=== PATIENT | female | born 1940 | race Caucasian/White ===

== ENCOUNTER 2017-01-04 09:16 | Inpatient (IN) | payer OTHER ==
[~2017-01-04] VITALS: Ht 162.6 cm; Wt 79.8 kg
--- NOTE | ~2017-01-04 | EKG ---
[place] [address] [facility] [place] [address] ELECTROCARDIOGRAM REPORT Name: TOSIN BARRETT Room #: 438-P ADM IN M.R.#: [id number] Admission: 01/04/17 Attend Phys: Gasper Bustillo MD Discharge: Date of : 38 Report #: [id number] THIS REPORT FOR: //name// [facility] ED Test Date: 2017-01-04 Test Time: 09:58:40 Pat Name: TOSIN BARRETT Department: Room: 438 Gender: F Ring Spinner: MICHAELA : 1940 Requested By: Giovany Sebastian Order Number: [id number] MD: Patel Kaur Measurements Intervals [place] Rate: 65 P: 21 DE: 183 QRS: -6 QRSD: 115 T: 7 QT: 450 QTc: 468 Interpretive Statements Sinus rhythm Frequent ventricular ectopy Nonspecific T abnormalities Compared to ECG 09/21/2014 11:17:03 Ventricular premature complex(es) now present Electronically Signed On 01-05-2017 8:20:20 CDT by Patel Kaur [email or web address] <ELECTRONICALLY SIGNED> By: Patel Kaur MD, [facility] 01/05/17 08 7 7 Patel Kaur MD, [facility] /EPI
[~2017-01-04 09:16] MED LIST: AMARYL4 MG PO; ANTIVERT25 MG PO; BYSTOLIC2.5 MG PO; COLACE100 MG PO; JANUVIA100 MG PO; LIPITOR20 MG PO; PERCOCET 5-3251 EACH PO; ULTRAM 50MG TAB50 MG PO; ZOFRAN ODT4 MG PO
[2017-01-04 09:19] VITALS: BP 137/114
[2017-01-04] MEDS ORDERED: TESSALON PERLE100 MG PO (09:42)
[2017-01-04] MEDS ORDERED: ROBAXIN 750 MG750 M1 PO (09:42)
[2017-01-04 10:02] LABS: HEMATOCRIT 47.4 % (37.0-47.0); HEMOGLOBIN 15.7 gm/dL (12.0-15.0); MCH 31.3 pg (26.0-34.0); MCHC 33.2 g/dL (28.0-37.0); MCV 94.1 fL (80.0-100.0); PLATELET COUNT 188 thou/uL (150-400); RBC 5.03 mil/uL (4.20-5.00); RDW 14.5 % (10.5-14.5); WBC 20.3 thou/uL (4.0-11.0)
[2017-01-04 10:13] LABS: ANION GAP 8 mmol/L (7-16); BUN 15 mg/dL (7-18); CALCIUM 9.7 mg/dL (8.5-10.1); CHLORIDE 102 mmol/L (98-107); CO2 28 mmol/L (21-32); CREATININE 0.9 mg/dL (0.6-1.0); GLUCOSE 211 mg/dL (74-106); POTASSIUM 3.9 mmol/L (3.5-5.1); SODIUM 138 mmol/L (136-145)
[2017-01-04 10:16] LABS: MANUAL DIFF YES
[2017-01-04 10:21] LABS: TROPONIN-I < 0.04 ng/mL (<0.04-0.07)
[2017-01-04 10:27] LABS: ABG SAMPLE TYPE ARTERIAL; BE(vivo) -1.3 mmol/L (-2 to +3); HCO3 23.3 mmol/L (22.0-26.0); LACTATE 1.65 mmol/L (0.5-2.0); PCO2 38.9 mmHg (35.0-45.0); PO2 65.7 mmHg (80.0-100.0); pH 7.395 (7.360-7.450); tCO2 24.5 mmol/L (24.0-30.0)
[2017-01-04 10:28] LABS: STICK SITE R.RADIAL
[2017-01-04 11:03] LABS: ABSOLUTE NEUTROPHILS 17.7 thou/uL (1.4-8.2); TOTAL CELL COUNT 100
[2017-01-04 11:04] LABS: ANISOCYTOSIS SLIGHT; LARGE PLATELETS OCCASIONAL
[2017-01-04 11:55] VITALS: BP 113/63
[2017-01-04 12:10] VITALS: BP 125/63
[2017-01-04 15:35] VITALS: BP 120/62
[2017-01-04 19:45] VITALS: BP 131/56
[2017-01-05 04:00] VITALS: BP 134/58
[2017-01-05 08:00] VITALS: BP 128/64
[2017-01-05 09:16] LABS: HEMATOCRIT 43.9 % (37.0-47.0); HEMOGLOBIN 14.3 gm/dL (12.0-15.0); MCH 31.1 pg (26.0-34.0); MCHC 32.6 g/dL (28.0-37.0); MCV 95.7 fL (80.0-100.0); RBC 4.59 mil/uL (4.20-5.00); WBC 12.8 thou/uL (4.0-11.0)
[2017-01-05 09:27] LABS: CALCIUM 9.3 mg/dL (8.5-10.1); CREATININE 0.7 mg/dL (0.6-1.0); POTASSIUM 3.9 mmol/L (3.5-5.1)
[2017-01-05 16:00] VITALS: BP 133/53
[2017-01-05 19:37] VITALS: BP 167/77
[2017-01-06 03:35] VITALS: BP 141/60
[2017-01-06 08:34] VITALS: BP 170/78
[2017-01-06 15:43] VITALS: BP 170/66
[2017-01-06 19:33] VITALS: BP 145/91
[2017-01-07 04:10] VITALS: BP 150/74
[2017-01-07 07:35] VITALS: BP 150/74
[2017-01-07 07:57] VITALS: BP 171/66
== END 2017-01-07 15:16 | disposition home or self-care (01) | DRG 871 ==
LOC: ER 09:16 → EROBS 11:19 → 4S 11:19 → ENTRNSPT 01-07 15:11 → EDTRNSPTSTS 01-07 15:12 → 4S 01-07 15:16
PROVIDERS: Family Medicine; Physician Assistant
DX: A41.9 Sepsis, unspecified organism (principal); J18.9 Pneumonia, unspecified organism; J96.00 Acute respiratory failure, unspecified whether with hypoxia or hypercapnia; E11.9 Type 2 diabetes mellitus without complications; R09.02 Hypoxemia; E78.5 Hyperlipidemia, unspecified; I10 Essential (primary) hypertension; Z90.49 Acquired absence of other specified parts of digestive tract; Z90.710 Acquired absence of both cervix and uterus; Z88.6 Allergy status to analgesic agent; Z88.2 Allergy status to sulfonamides; Z88.8 Allergy status to other drugs, medicaments and biological substances; Z87.891 Personal history of nicotine dependence; Z79.899 Other long term (current) drug therapy
CPT/HCPCS: 10195

== ENCOUNTER → 2017-02-15 | Outpatient (CLI) | payer OTHER ==
[~2017-02-15] MED LIST changes: +ROBAXIN 750 MG750 M1 PO; +TESSALON PERLE100 MG PO
== END ==
LOC: RAD 12:45
DX: R05 Cough (principal)

== ENCOUNTER → 2018-06-09 | Outpatient (CLI) | payer OTHER | LOC: CAT 08:44 | DX: K76.9 Liver disease, unspecified (principal); N28.1 Cyst of kidney, acquired; K42.9 Umbilical hernia without obstruction or gangrene; K86.89 Other specified diseases of pancreas; K57.30 Diverticulosis of large intestine without perforation or abscess without bleeding; K76.0 Fatty (change of) liver, not elsewhere classified; M43.27 Fusion of spine, lumbosacral region; Z90.49 Acquired absence of other specified parts of digestive tract; Z90.710 Acquired absence of both cervix and uterus; Z90.81 Acquired absence of spleen ==

== ENCOUNTER → 2018-06-17 | Outpatient (CLI) | payer OTHER ==
[~2018-06-17] MED LIST changes: +BYSTOLIC10 MG PO; +EXCEDRIN CAPLE1 EACH PO; +TRAMADOL 50 MG50 MG PO
== END ==
LOC: ULTRA 07:47
DX: K76.89 Other specified diseases of liver (principal); N28.1 Cyst of kidney, acquired; Z90.49 Acquired absence of other specified parts of digestive tract

== ENCOUNTER → 2018-06-21 | Outpatient (CLI) | payer OTHER ==
[~2018-06-21] VITALS: Ht 162.6 cm; Wt 79.4 kg
[~2018-06-21] MED LIST changes: +ASPIR 8181 MG PO; +ATORVASTATIN CA40 MG PO; +OXYGEN MISCELL
== END | disposition home or self-care (01) ==
LOC: OR 06:26 → GI 06:26 → EDSTATUS 09:51 → OR 09:52 → PRE 14:16
DX: Z98.84 Bariatric surgery status (principal); I10 Essential (primary) hypertension; E78.5 Hyperlipidemia, unspecified; K21.9 Gastro-esophageal reflux disease without esophagitis; E11.9 Type 2 diabetes mellitus without complications; Z90.49 Acquired absence of other specified parts of digestive tract; Z98.41 Cataract extraction status, right eye; Z98.42 Cataract extraction status, left eye; Z88.2 Allergy status to sulfonamides; Z87.891 Personal history of nicotine dependence; Z88.8 Allergy status to other drugs, medicaments and biological substances; Z79.82 Long term (current) use of aspirin; Z79.899 Other long term (current) drug therapy; Z98.890 Other specified postprocedural states
CPT/HCPCS: 62110; 62900

== ENCOUNTER 2018-06-23 08:15 | Inpatient (IN) | payer OTHER ==
[~2018-06-23] VITALS: Ht 162.6 cm; Wt 54.4 kg
[~2018-06-23 08:15] MED LIST changes: -ASPIR 8181 MG PO; -ATORVASTATIN CA40 MG PO; -OXYGEN MISCELL
[2018-06-23 08:16] VITALS: BP 145/78
[2018-06-23] MEDS ORDERED: EXCEDRIN CAPLE1 EACH PO (08:27)
[2018-06-23 08:42] LABS: ABSOLUTE NEUTROPHILS 10.1 thou/uL (1.4-8.2); BASOPHILS 0.5 % (0.0-2.0); EOSINOPHILS 3.1 % (0.0-3.0); HEMATOCRIT 42.8 % (37.0-47.0); HEMOGLOBIN 14.3 gm/dL (12.0-15.0); LYMPHOCYTES 15.7 % (24.0-44.0); MCHC 33.3 g/dL (28.0-37.0); MCV 93.1 fL (80.0-100.0); MONOCYTES 8.7 % (1.0-8.0); RDW 14.3 % (10.5-14.5)
[2018-06-23 08:55] LABS: ANION GAP 8 mmol/L (7-16); BUN 20 mg/dL (7-18); CALCIUM 9.1 mg/dL (8.5-10.1); CHLORIDE 103 mmol/L (98-107); CO2 29 mmol/L (21-32); CREATININE 0.8 mg/dL (0.6-1.0); GLUCOSE 172 mg/dL (74-106); POTASSIUM 4.1 mmol/L (3.5-5.1); SODIUM 140 mmol/L (136-145)
[2018-06-23 09:04] LABS: TROPONIN-I <0.06 ng/mL (<0.06)
[2018-06-23 09:53] LABS: PLATELET COUNT 147 thou/uL (150-400)
[2018-06-23 09:54] LABS: LARGE PLATELETS SEVERAL; PLATELET ESTIMATE 180
[2018-06-23 10:31] VITALS: BP 134/70
[2018-06-23 10:45] VITALS: BP 130/73; BP 134/70
[2018-06-23 11:00] VITALS: BP 149/66
[2018-06-23 16:00] VITALS: BP 151/61
--- NOTE | 2018-06-23 16:41 | EKG ---
[place] [address] [employer] [facility] [place] [address] ELECTROCARDIOGRAM REPORT Name: TOSIN BARRETT Room #: 219-P ADM IN M.R.#: [id number] ������������������ Admission: 06/23/18 ������������������ Attend Phys: Gasper Bustillo MD Discharge: ������������������ Date of : 38 Report #: [id number] ����������������������������������������������������������������� [id number] THIS REPORT FOR: //name// [facility] ED Test Date: 2018-06-23 Test Time: 08:18:18 Pat Name: TOSIN BARRETT Department: Room: 219 Gender: F Manager Imaging: ABHAY : 1940 Requested By: Bobby Doty Order Number: [id number] MD: Ben Dias Measurements Intervals [place] Rate: 48 P: 24 VA: 179 QRS: -9 QRSD: 143 T: -4 QT: 502 QTc: 449 Interpretive Statements Sinus rhythm Ventricular trigeminy Probable left ventricular hypertrophy Compared to ECG 01/04/2017 09:58:40 Ventricular premature complex(es) now present T-wave abnormality no longer present Electronically Signed On 06-23-2018 16:41:17 FARROWING WORKER by Ben Dias [email or web address] ��������������������������������������������� <ELECTRONICALLY SIGNED> ���������������������������������������� By: Ben Dias MD ��������������������������������������������� 06/23/18 1641 7 7 Ben Dias MD /EPI
[2018-06-23 19:24] VITALS: BP 139/74
--- NOTE | 2018-06-23 19:47 | NUR ---
ASSUMED CARE OF PATIENT AT 1100 FROM ED. PATIENT COMPLAINED OF LEFT SIDED CHEST PAIN AND LEFT SIDED NECK PAIN, SHARP IN NATURE AT 8/10. PATIENT GIVEN MORPHINE WITH LITTLE RELIEF. PATIENT RECEIVED MOST RELIEF FROM ONE TIME DOSE OF TORADOL, CHANGING PAIN TO 6/10. ASSESSMENT COMPLETED. PATIENT AMBULATING TO BEDSIDE COMMODE AND STATES THAT PAIN IS WORSENED WITH MOVEMENT. PATIENT UNDERWENT A CTA CHEST WHICH WAS NEGATIVE FOR PE. PATIENT RESTING COMFORTABLY IN BED WITH DAUGHTER AT HER BEDSIDE. WILL CONTINUE TO MONITOR AND FOLLOW POC.
[2018-06-24 00:05] VITALS: BP 143/58
[2018-06-24 04:37] VITALS: BP 135/65
[2018-06-24 07:42] VITALS: BP 134/52
--- NOTE | 2018-06-24 07:51 | NUR ---
ASSUME CARE 1900. COMPLAINING OF CP RADIATING TO BILATERAL SHOULDERS. TOLERATES ACTIVITY WELL. BIGEMINAY/TRIGENMIY NOTED ON MOITOR. ORDERS RECEIVED TO STAT BYSTOLIC. INTERMITTENT EXCRUTIATING PAIN NOTED WITH SHOLDERS. BACLOFEN ORDERED TO HELP WITH SPASMS. ADEQUATE REST NOTED. ASSESSMENT CHARTED. PROGRESSING WELL WITH POC. WILL CONTINUE TO MONITOR AND FOLLOW WITH POC
[2018-06-24 09:03] LABS: TROPONIN-I <0.06 ng/mL (<0.06)
--- NOTE | 2018-06-24 10:02 | EKG ---
[address] [address] ELECTROCARDIOGRAM REPORT Name: TOSIN BARRETT Room #: 219-P ADM IN M.R.#: [id number] ������������������ Admission: 06/23/18 ������������������ Attend Phys: Gasper Bustillo MD Discharge: ������������������ Date of : 38 Report #: [id number] ����������������������������������������������������������������� [id number] THIS REPORT FOR: //name// [facility] Test Date: 2018-06-24 Test Time: 09:09:22 Pat Name: TOSIN BARRETT Department: Room: 219 P Gender: F Co Director: PADILLA : 1940 Requested By: Virgen Candelario Order Number: [id number] MD: Ben Dias Measurements Intervals [place] Rate: 45 P: 20 OR: 186 QRS: 11 QRSD: 106 T: 37 QT: 448 QTc: 388 Interpretive Statements Sinus bradycardia Minimal ST elevation inferiorly, Compared to ECG 06/23/2018 08:18:18 Electronically Signed On 06-24-2018 10:02:06 MECHANICAL MAINTENANCE FOREMAN by Ben Dias [email or web address] ��������������������������������������������� <ELECTRONICALLY SIGNED> ���������������������������������������� By: Ben Dias MD ��������������������������������������������� 06/24/18 1002 D: [id number] 8 Ben Dias MD /CHARO
--- NOTE | 2018-06-24 11:00 | 2DMMODE ---
[facility] [employer] [place] [address] 2 D/M-MODE ECHOCARDIOGRAM Name: TOSIN BARRETT Room #: 219-P ADM IN M.R.#: [id number] ������������� Admission: 06/23/18 ������������� Attend Phys: Gasper Bustillo, Discharge: ��� ������������� ��� Date of : 38 Date of Service: 06/24/18 [facility] �� Report #: [id number] �������� ��������������������������������������������[id number] THIS REPORT FOR: //name// APPROVED REPORT Study performed: 06/24/2018 10:03:24 EXAM: Comprehensive 2D, Doppler, and color-flow Echocardiogram Patient Location: Bedside Room #: 219 Status: routine BSA: 1.91 HR: 43 bpm BP: 135/65 mmHg Rhythm: Bradycardia Other Information Study Quality: Good Indications Diabetes Chest Pain Hypertension/HDD 2D Dimensions RVDd: 40.31 mm IVSd: 11.16 (7-11mm) LVOT Diam: 21.16 (18-24mm) LVDd: 59.02 mm PWd: 11.00 (7-11mm) Ascending Ao: 34.71 (22-36mm) LVDs: 41.62 (25-40mm) Aortic Root: 32.22 mm IVC: 18.00 mm Volumes Left Atrial Volume (Systole) Single Plane 4CH: 70.55 mL Single Plane 2CH: 85.55 mL LA ESV Index: 46.00 mL/m2 Aortic Valve AoV Peak Nestor.: 1.63 m/s AO Peak Gr.: 10.63 mmHg LVOT Max P.47 mmHg LVOT Max V: 0.93 m/s JOCE Vmax: 2.01 cm2 Mitral Valve E/A Ratio: 1.4 [facility] [address] [place] [address] 2 D/M-MODE ECHOCARDIOGRAM Name: TOSIN BARRETT Room #: 219-P [facility] IN [facility].#: [id number] ������������� Admission: 06/23/18 ������������� Attend Phys: Gasper Bustillo, Discharge: ��� ������������� ��� Date of : 38 Date of Service: 06/24/18 1100 �� Report #: [id number] �������� ��������������������������������������������[id number] MV Decel. Time: 194.92 ms MV E Max Nestor.: 1.03 m/s MV A Nestor.: 0.73 m/s MV PHT: 56.53 ms IVRT: 129.18 ms Pulmonary Valve PV Peak Nestor.: 0.85 m/s PV Peak Gr.: 2.87 mmHg Pulmonary Vein P Vein S: 0.64 m/s P Vein A: 0.25 m/s P Vein D: 0.35 m/s P Vein A Dur.: 156.9 msec P Vein S/D Ratio: 1.83 Tricuspid Valve TR Peak Nestor.: 2.57 m/s TR Peak Gr.: 26.46 mmHg PA Pressure: 31.00 mmHg Left Ventricle Left ventricle is dilated. There is normal LV segmental wall motion. There is normal left ventricular wall thickness. The left ventricular systolic function is normal. The left ventricular ejection fraction is within the normal range. LVEF is 55-60%. The diastolic function is abnormal. Right Ventricle The right ventricle is normal size. The right ventricular systolic function is normal. Atria Left atrium is dilated. Right atrium is dilated. Aortic Valve The aortic valve is trileaflet, mildly sclerotic No aortic regurgitation is present. There is no aortic valvular stenosis. Mitral Valve The mitral valve is normal in structure. Mild mitral regurgitation. No evidence of mitral valve stenosis. Tricuspid Valve The tricuspid valve is normal in structure. There is mild tricuspid regurgitation. Estimated PAP 30 mmHg. [facility] [address] [place] [address] 2 D/M-MODE ECHOCARDIOGRAM Name: TOSIN BARRETT Room #: 219-P [facility] IN .R.#: [id number] ������������� Admission: 06/23/18 ������������� Attend Phys: Gasper Bustillo, Discharge: ��� ������������� ��� Date of : 38 Date of Service: 06/24/18 1100 �� Report #: [id number] �������� ��������������������������������������������[id number] Pulmonic Valve The pulmonary valve is normal in structure. Trace to mild pulmonic regurgitation. Great Vessels The aortic root is normal in size. IVC is normal in size and collapses >50% with inspiration. Pericardium There is no pericardial effusion. <Conclusion> The left ventricular systolic function is normal. There is normal LV segmental wall motion. LVEF 55-60%. The aortic valve is trileaflet, mildly sclerotic. No aortic regurgitation or stenosis The mitral valve is normal in structure. Mild mitral regurgitation. There is mild tricuspid regurgitation. Estimated pulmonary artery pressure of 30 mmHg. There is no pericardial effusion. ��������������������������������������������� <ELECTRONICALLY SIGNED> ���������������������������������������� By: Patel Kaur MD, FACC ��������������������������������������������� 06/24/18 1100 1100 99 Patel Kaur MD, FACC /INF
[2018-06-24 11:18] VITALS: BP 146/57
[2018-06-24 17:50] VITALS: BP 137/99
--- NOTE | 2018-06-24 18:45 | NUR ---
PT ASSESSED AT START OF SHIFT. CHEST PAIN RELIEVED THIS AM. PT HAD IV MORPHINE AND BACLOPHEN DURING THE NOC AND EARLY AM. PT NOTED TO BE SLEEPING SOUNDLY W/ PERIODS OF APNEA. STATING HE HAS NOTICED SHE'S SLEEPING MORE LATELY. PT WAS INCONTINENT WHILE SLEEPING AND STATES SHE HAS NEVER DONE THAT. SOME HALLUCINATIONS REPORTED BY AND DTR. INFO REPORTED TO DR. ALLISON. ORDERS NOTED. PT TO HAVE OVERNOC DESAT STUDY.
[2018-06-24 20:20] VITALS: BP 163/80
[2018-06-25 06:27] VITALS: BP 138/77
--- NOTE | 2018-06-25 06:55 | NUR ---
ASSUMED PT CARE AT 1900 WITH NO SIGN OF DISTRESS NOTED IN PT. PT IS ALERT AND ORIENTED AND NO FAMILY AT BEDSIDE, SCHEDULED MEDS ADMINISTERED PT, NURSING POC CONTINUED. PT IS STABLE THROUGHOUT THE NIGHT. VITAL SIGNS STABLE. DENIES ANY FURTHER NEEDS AT THIS TIME.
[2018-06-25] MEDS ORDERED: ATORVASTATIN CA40 MG PO (09:32)
[2018-06-25] MEDS ORDERED: ASPIR 8181 MG PO (09:32)
[2018-06-25] MEDS ORDERED: OXYGEN MISCELL (09:34)
[2018-06-25 12:25] VITALS: BP 138/77
== END 2018-06-25 13:38 | disposition home or self-care (01) | DRG 205 ==
LOC: ER 08:15 → EROBS 09:47 → 2N 09:47
PROVIDERS: Emergency Medicine; ADMIT Family Medicine
DX: M94.0 Chondrocostal junction syndrome [Tietze] (principal); G93.41 Metabolic encephalopathy; R07.89 Other chest pain; I10 Essential (primary) hypertension; E11.9 Type 2 diabetes mellitus without complications; E78.5 Hyperlipidemia, unspecified; K21.9 Gastro-esophageal reflux disease without esophagitis; J44.9 Chronic obstructive pulmonary disease, unspecified; I25.10 Atherosclerotic heart disease of native coronary artery without angina pectoris; Z90.49 Acquired absence of other specified parts of digestive tract; Z90.710 Acquired absence of both cervix and uterus; Z90.81 Acquired absence of spleen; Z98.42 Cataract extraction status, left eye; Z98.41 Cataract extraction status, right eye; Z88.6 Allergy status to analgesic agent; Z88.2 Allergy status to sulfonamides; Z88.8 Allergy status to other drugs, medicaments and biological substances; Z87.891 Personal history of nicotine dependence; Z79.82 Long term (current) use of aspirin; Z82.49 Family history of ischemic heart disease and other diseases of the circulatory system; Z83.6 Family history of other diseases of the respiratory system; Z79.899 Other long term (current) drug therapy
CPT/HCPCS: 10081

== ENCOUNTER → 2018-07-12 | Outpatient (CLI) | payer OTHER ==
[~2018-07-12] MED LIST changes: +ASPIR 8181 MG PO; +ATORVASTATIN CA40 MG PO; +OXYGEN MISCELL
[2018-07-12 14:52] LABS: CREATININE 0.8 mg/dL (0.6-1.0)
== END ==
LOC: MRI 11:36 → LAB 13:55 → MRI 13:55
PROVIDERS: Family Medicine
DX: G31.9 Degenerative disease of nervous system, unspecified (principal); Z88.5 Allergy status to narcotic agent; Z88.2 Allergy status to sulfonamides; Z88.8 Allergy status to other drugs, medicaments and biological substances

== ENCOUNTER 2018-07-30 14:36 | Emergency (ER) | payer OTHER ==
[~2018-07-30] VITALS: Ht 162.6 cm; Wt 79.4 kg
[2018-07-30 15:09] LABS: ABSOLUTE NEUTROPHILS 10.7 thou/uL (1.4-8.2); BASOPHILS 0.4 % (0.0-2.0); EOSINOPHILS 1.8 % (0.0-3.0); HEMATOCRIT 42.9 % (37.0-47.0); HEMOGLOBIN 13.6 gm/dL (12.0-15.0); LYMPHOCYTES 10.3 % (24.0-44.0); MCH 29.7 pg (26.0-34.0); MCHC 31.8 g/dL (28.0-37.0); MCV 93.4 fL (80.0-100.0); MONOCYTES 9.8 % (1.0-8.0); POLYS 77.7 % (36.0-66.0); RBC 4.59 mil/uL (4.20-5.00); RDW 14.5 % (10.5-14.5); WBC 13.8 thou/uL (4.0-11.0)
[2018-07-30 15:19] LABS: CALCIUM 9.3 mg/dL (8.5-10.1); CREATININE 0.9 mg/dL (0.6-1.0)
[2018-07-30 15:33] LABS: LARGE PLATELETS RARE; PLATELET COUNT 163 thou/uL (150-400)
[2018-07-30 15:34] LABS: ALBUMIN 3.4 g/dL (3.4-5.0); TOTAL BILIRUBIN 0.4 mg/dL (<0.1-1.0); TOTAL PROTEIN 6.8 g/dL (6.4-8.2)
[2018-07-30 16:08] LABS: URINE BILIRUBIN NEGATIVE (Negative); URINE BLOOD 3+ (Negative); URINE COLOR YELLOW; URINE GLUCOSE-RANDOM* NEGATIVE (Negative); URINE KETONES NEGATIVE (Negative); URINE LEUKOCYTES-REFLEX NEGATIVE (Negative); URINE NITRITE-REFLEX NEGATIVE (Negative); URINE PROTEIN (DIPSTICK) NEGATIVE (Negative); URINE UROBILINOGEN 0.2 E.U./dl (0.2-1.0)
[2018-07-30 16:10] LABS: URINE CLARITY SL HAZY
[2018-07-30 16:12] LABS: SQUAMOUS 4-10 Moderate /LPF (0-3); URINE RBC >20 Many /HPF (0-2); URINE WBC-REFLEX 0-5 Rare /HPF (0-5)
[2018-07-30 16:14] LABS: CASTS None Seen /LPF (None Seen); CRYSTALS None Seen /LPF (None Seen)
[2018-07-30 18:53] VITALS: BP 190/83
== END 2018-07-30 19:04 | disposition short-term general hospital (02) ==
LOC: ER 14:36
PROVIDERS: Nurse Practitioner Family
DX: N13.2 Hydronephrosis with renal and ureteral calculous obstruction (principal); N39.0 Urinary tract infection, site not specified; E78.5 Hyperlipidemia, unspecified; E11.9 Type 2 diabetes mellitus without complications; I10 Essential (primary) hypertension; K21.9 Gastro-esophageal reflux disease without esophagitis; Z90.49 Acquired absence of other specified parts of digestive tract; Z90.710 Acquired absence of both cervix and uterus; Z87.891 Personal history of nicotine dependence; Z88.2 Allergy status to sulfonamides; Z88.5 Allergy status to narcotic agent; Z88.8 Allergy status to other drugs, medicaments and biological substances

== ENCOUNTER → 2018-08-15 | Outpatient (CLI) | payer OTHER | LOC: RAD 09:17 | DX: K59.00 Constipation, unspecified (principal) ==

== ENCOUNTER → 2019-07-24 | Outpatient (CLI) | payer OTHER | LOC: CAT 08:00 | DX: K43.9 Ventral hernia without obstruction or gangrene (principal); K76.89 Other specified diseases of liver; J98.4 Other disorders of lung; M47.815 Spondylosis without myelopathy or radiculopathy, thoracolumbar region; N28.1 Cyst of kidney, acquired; Z90.49 Acquired absence of other specified parts of digestive tract ==